=== PATIENT | female | born 1980 | race Caucasian/White ===

== ENCOUNTER 2023-02-22 11:03 | Emergency (ER) | payer OTHER, SELFPAY ==
[2023-02-22 11:39] VITALS: BP 149/98; PULSE 100; RESP 16; TEMP 36.6; O2SAT 100
--- NOTE | 2023-02-22 11:58 | ED.GENADULT ---
HPI - General Adult General Chief complaint: Upper Respiratory Infection Stated complaint: sore throat,congestion Time Seen by Provider: 02/22/23 11:58 Source: patient, RN notes reviewed and old records reviewed Mode of arrival: ambulatory Limitations: no limitations History of Present Illness HPI narrative: 42year old female accompanied by spouse presents to express care with complaints of sore throat, nasal congestion and drainage, right ear pain pressure for one week duration. Patient reports that she has noted hoarseness for the past 3 days. Patient reports no fevers, no nausea vomiting or diarrhea or any body aches. Patient has not been COVID vaccinated or had flu shot, declined offer of screening for these disease processes. Patient reports that she has been taking Tylenol severe cold and flu medications for her symptoms and Flonase nasal spray. MD complaint: right ear pain, sore throat nasal congestion and drainage Onset (ago): week(s) (1) Severity scale (1-10): 6 Treatments prior to arrival: other (Tylenol severe cold and flu, flonase) Related Data Home Medications Medication Instructions Recorded Confirmed norethindrone 1 mg-ethinyl 1 tablet DAILY 02/22/23 02/22/23 estradiol 10 mcg (24)-iron 10 mcg(2) tablet (Lo Loestrin Fe) Allergies Allergy/AdvReac Type Severity Reaction Status Date / Time No Known Allergies Allergy Verified 02/22/23 11:43 Review of Systems Review of Systems: CONSTITUTIONAL: Denies malaise, chills, sweats, or fever. EYES: Denies visual changes, redness, or discharge. ENT: Reports rhinorrhea, congestion, sinus pain,right otalgia and sore throat.hoarseness for 3 days CARDIOVASCULAR: Denies chest pain, palpitations, or edema RESPIRATORY: Reports no cough.? Denies dyspnea. GASTROINTESTINAL: Denies abdominal pain, nausea, vomiting, diarrhea SKIN: Denies rash or itching. MUSCULOSKELETAL: Denies myalgia. NEUROLOGIC: Denies headache. All systems reviewed & are unremarkable except as noted in HPI and below [facility] Social History Social History (Updated 02/24/23 @ 12:31 by Neena Mccauley NP) Smoking status: Never smoker Alcohol intake: current Alcohol use details: social Substance use type: does not use Living arrangements: with family Gender identity (if verbalized by the patient): Female Comments At time of signature, agree with nursing past medical, surgical, social and family history. There is no relevant family history pertinent to the presenting complaint Exam Narrative: GENERAL: Well-appearing, well-nourished, and in no acute distress. HEAD: Normocephalic EYES: PERRLA, conjunctivae clear ENT: Nares clear, turbinates edematous and erythematous, clear discharge. Mucous membranes moist. Right TM red and bulging, Left TM pearly christine with dull light reflex; no tragal tenderness. Oropharynx erythematous without lesions. Tonsils not enlarged and without exudate, no drooling, no hoarseness, no trismus, uvula midline.post nasal drainage NECK: Supple. No lymphadenopathy CHEST: Clear to auscultation, breath sounds equal. No wheezing, rhonchi, rales, or stridor. No respiratory distress, speaks in full sentences.no cough noted, SAO2 100% on room air HEART: Regular rate and rhythm. No murmur heard. SKIN: Warm, dry, no rash. NEURO: Alert and oriented x3. PSYCH: Normal mood and affect Course Course Emergency Course: Patient is aware of diagnosis, understands and agrees to treatment plan.? Anticipatory guidance given.? Patient agrees to follow-up as directed and is aware of reasons to seek care at the emergency department. Portions of this record may have been created with voice recognition software Level of Care: Express Care Visit Vital Signs Vital signs: Vital Signs Temperature 36.6 C 02/22/23 11:39 Pulse Rate 100 02/22/23 11:39 Respiratory Rate 16 02/22/23 11:39 Blood Pressure 149/98 H 02/22/23 11:39 Pulse Oximetry
== END 2023-02-22 12:22 | disposition home or self-care (01) ==
PROVIDERS: Emergency Provider Registered Nurse
DX: J06.9 Acute upper respiratory infection, unspecified (principal); H66.91 Otitis media, unspecified, right ear
CPT/HCPCS: 87081; 87880; 99203; G0463

== ENCOUNTER 2023-03-04 08:12 | Emergency (ER) | payer OTHER, SELFPAY ==
--- NOTE | 2023-03-04 08:29 | ED.SKABFB ---
HPI - Skin/Abscess/Foreign Bdy General Chief complaint: Skin/Abscess/Foreign Body Stated complaint: body rash Time Seen by Provider: 03/04/23 08:28 Source: patient and RN notes reviewed History of Present Illness HPI narrative: Patient is a 42-year-old female who presents to the [facility] with a generalized rash that she noticed a couple days ago. Patient states that the rash started on her leg and has progressed to her trunk, back, bilateral arms, and bilateral legs. Patient presents with a reddened maculopapular rash that is consistent with hives. She denies difficulty breathing or swelling. Patient states that she recently completed a course of Amoxicillin for an ear infection. Patient denies new lotions, soaps, perfumes, detergents. States that the only change in food/medications was the Amoxicillin. Related Data Allergies Allergy/AdvReac Type Severity Reaction Status Date / Time No Known Allergies Allergy Verified 03/04/23 08:14 Review of Systems Review of Systems: CONSTITUTIONAL: Denies fever, chills, or sweats. EYES: Denies visual changes, redness, or discharge. ENT: Denies otalgia and sore throat CARDIOVASCULAR: Denies chest pain, palpitations, or edema. RESPIRATORY: Denies cough or dyspnea. GASTROINTESTINAL: Denies abdominal pain, nausea, vomiting, or diarrhea. GENITOURINARY: Denies dysuria or hematuria. SKIN: Reports generalized rash with mild itching. MUSCULOSKELETAL: Denies back pain, joint pain, or myalgia. NEUROLOGIC: Denies headache, numbness, or weakness. Pertinent positives per HPI. PMFSH Social History Social History Smoking status: Never smoker Alcohol intake: current Alcohol use details: social Substance use type: does not use Living arrangements: with family Gender identity (if verbalized by the patient): Female Comments At the time of my signature, I reviewed and agree with the nursing past medical, surgical, social, and family history. There is no relevant family history pertinent to the patient complaint. Exam Narrative: GENERAL: This is a well-nourished, well-developed patient, in no apparent distress. HEAD: normocephalic, atraumatic. EYES: Sclera clear/white. Vision is grossly intact. EARS: External ears normal, auditory canals clear and without drainage. Hearing grossly intact. NOSE: External nose normal with no obvious nasal discharge, nares without redness, no rhinorrhea. THROAT: Mucous membranes moist, posterior pharynx clear. NECK: Neck supple, non-tender without lymphadenopathy, masses or thyromegaly. CARDIOVASCULAR: Regular rate and rhythm without murmurs, gallops, or rubs. RESPIRATORY: Clear to auscultation. Breath sounds equal bilaterally. No wheezes, rales, or rhonchi. GASTROINTESTINAL: Abdomen soft, non-tender, nondistended. Bowel sounds are active. No hepato-splenomegaly, or palpable masses. No guarding. SKIN: warm, intact with no suspicious lesions, good texture and turgor. Patient presents with generalized reddened maculopapular rash to trunk, back, bilateral legs and arms; consistent with allergic contact dermatitis/hives. NEURO: awake, alert, and oriented to person, place and time. There were no obvious focal neurologic abnormalities. EXTREMITIES: No clubbing, cyanosis, or edema. No joint tenderness, effusion, or edema noted. BACK: Nontender without deformity or crepitance. No flank tenderness. Course Course Level of Care: Express Care Visit Vital Signs Vital signs: Vital Signs Temperature 97.8 F 03/04/23 08:35 Pulse Rate 86 03/04/23 08:35 Respiratory Rate 20 03/04/23 08:35 Blood Pressure 140/90 03/04/23 08:35 Pulse Oximetry 100 03/04/23 08:35 Temperature 97.8 F 03/04/23 08:35 Pulse Rate 86 03/04/23 08:35 Respiratory Rate 20 03/04/23 08:35 Blood Pressure 140/90 03/04/23 08:35 Pulse Oximetry 100 03/04/23 08:35 Reviewed MDM - Skin/Abscess/Foreign Bdy MDM N
[2023-03-04 08:35] VITALS: BP 140/90; PULSE 86; RESP 20; TEMP 36.6; O2SAT 100
== END 2023-03-04 08:50 | disposition home or self-care (01) ==
PROVIDERS: Emergency Provider Nurse Practitioner
DX: L23.89 Allergic contact dermatitis due to other agents (principal)
CPT/HCPCS: 99213; G0463

== ENCOUNTER → 2023-12-16 11:37 | Outpatient (CLI) | payer OTHER, SELFPAY ==
--- NOTE | ~2023-12-16 | US_ITS ---
EXAMINATION: US thyroid DATE: 12/16/2023 11:58 INDICATION: Nontoxic goiter, unspecified. TECHNIQUE: Multiple ultrasound images of the thyroid were obtained. COMPARISON: None. FINDINGS: The right thyroid lobe measures 6.3 x 1.6 x 2.1 cm. The left thyroid lobe measures 6.0 x 1.3 x 1.8 c m. In the left thyroid lobe, there is an 11 mm mixed cystic and solid, isoechoic, wider than tall no dule with smooth margin without echogenic foci (TI-RADS TR2). In the left thyroid lobe, there is an 1 1 mm mixed cystic and solid, isoechoic, wider than tall nodule with smooth margin without echogenic f oci (TR2). In the left thyroid lobe, there is a 6 mm mixed cystic and solid, isoechoic, wider than ta ll nodule with smooth margin without echogenic foci (TR2). IMPRESSION: 1. Small thyroid nodules, likely not clinically significant. No follow-up is needed. Reviewed, dictated and finalized at location E. [employer]ING TEAM MEMBER IMPRESSION: 1. Small thyroid nodules, likely not clinically significant. No follow-up is ne eded.
== END ==
PROVIDERS: PCP Family Medicine; Visit Provider Family Medicine
DX: E04.2 Nontoxic multinodular goiter (principal)
CPT/HCPCS: 76536

== ENCOUNTER 2025-06-06 10:33 | Emergency (ER) | payer BC, SELFPAY ==
--- NOTE | 2025-06-06 10:35 | ED.SKABFB ---
HPI - Skin/Abscess/Foreign Bdy General Chief complaint: Skin/Abscess/Foreign Body Stated complaint: Poison Dulce Time Seen by Provider: 06/06/25 10:35 Source: patient Mode of arrival: ambulatory Limitations: no limitations History of Present Illness HPI narrative: Nava is in a 44-year-old female patient presenting to the clinic today with complaints of possible poison dulce to bilateral lower extremities x1 week. She reports rash seems to be getting worse. Rash initially started on the left leg and now has spread to the right leg. Rash is itchy, blistering, and raised. Was outside mowing and working in the [place] over last weekend prior to her developing the rash. Her also has a similar rash-he was working on the [place] trees. She denies any shortness of breath, drooling, or difficulty swallowing. No other environmental changes, medications, or foods. Related Data Home Medications ?Medication ?Instructions ?Recorded ?Confirmed ?Last Taken ?Type lactobacillus combination no.4 3 3,000 mmu cells PO DAILY 11/13/23 06/06/25 Unknown History billion cell capsule (Probiotic) multivitamin 1 tablet PO DAILY 11/13/23 06/06/25 Unknown History norethindrone 1 mg-ethinyl 1 tablet PO DAILY 11/13/23 06/06/25 Unknown History estradiol 10 mcg (24)-iron 10 mcg(2) tablet (Lo Loestrin Fe) vitamin B complex (B 1 tablet PO DAILY 11/13/23 06/06/25 Unknown History Complex-Vitamin B12 tablet) Allergies Allergy/AdvReac Type Severity Reaction Status Date / Time amoxicillin Allergy Mild Unknown Verified 06/06/25 10:54 Review of Systems Review of Systems: Pertinent positives per HPI. Patient denies any fever, chills, headache, visual changes, dizziness, cough, runny nose, sore throat, shortness of breath, chest pain, palpitations, nausea, vomiting, diarrhea, constipation, abdominal pain, or any urinary issues. PMFSH Past Medical History Medical History Cystic acne Family History Family History Father Malignant neoplasm of prostate Diabetes mellitus Mother Hypertension Grandparent Hypertension Cerebrovascular accident Social History Social History Social History: Years smoked: 10 Smoking status: Never smoker Tobacco type: e-cigarettes/vaping Second hand tobacco smoke exposure: No Additional smoking assessment comments: Pt is still vaping Alcohol intake: current Drinks per week: 4 Substance use: never Substance use type: does not use Do You Feel Safe in your Home?: Yes Lack of Transportation: No Lack of Food: Never True Current Housing: I Have Housing Concerned About Future Housing: No Difficulty Paying Gas/Electric Bills: No Difficulty Paying for Meds: No Currently Unemployed: No Education: Don't Know Difficulty w/ Childcare or Family Care: No Living arrangements: with family Occupation/Education: occupation Additional occupation/education comments: Self Employed Gender identity (if verbalized by the patient): Female Sexual Orientation (if Verbalized by the Patient): Straight or Heterosexual Comments At the time of my signature, I reviewed and agree with the nursing past medical, surgical, social, and family history. There is no relevant family history pertinent to the patient complaint. Exam Narrative: General: Well-developed, well nourished, in no apparent distress Head: Normocephalic, atraumatic. Cardio: Regular rate and rhythm, s1 and s2 normal, no murmur appreciated. Resp: Clear to auscultation bilaterally, no rhonchi, rales, wheezing or rubs. Integumentary: Liborio Negron Torres, warm, and dry, intact without lesion, red, raised, blistery rash to bilateral lower extremities Course Course Emergency Course: Portions of this record may have been created with voice recognition software. Level of Care: Express Care Visit Vital Signs Vital signs: Vital Signs Temperature 36.8 C 06/06/25 10:50 Pulse Rate 87 06/06/25 10:50 Respiratory Rate 16 06/06/25 10:50 Blood Pressure 128/86 06/06/25 10:50 Pulse Oximetry 100 06/06/25 10:50 Oxygen Delivery Room Air 06/06/25 10:50 Temperature 36.8 C 06/06/25 10:50 Pulse Rate 87 06/06/25 10:50 Respiratory Rate 16 06/06/25 10:50 Blood Pressure 128/86 06/06/25 10:50 Pulse Oximetry 100 06/06/25 10:50 Oxygen Delivery Room Air 06/06/25 10:50 Vital signs reviewed MDM - Skin/Abscess/Foreign Bdy MDM Narrative Medical decision making narrative: At the time of visit patient is resting comfortably on the exam table. Patient appears to be nontoxic. Complaints of possible poison dulce to bilateral lower extremities x1 week. She reports rash seems to be getting worse. Rash initially started on the left leg and now has spread to the right leg. Rash is itchy, blistering, and raised. Was outside mowing and working in the [place] last weekend prior to her developing the rash. Her also has a similar rash-he was working [place] the [place]. She denies any shortness of breath, drooling, or difficulty swallowing. No other environmental changes, medications, or foods. Patient has a red blistering itchy rash to bilateral lower extremities Plan: I suspect patient has poison dulce dermatitis. Prescription for triamcinolone cream and prednisone taper dose was sent to the pharmacy for Supportive measures were discussed with the patient and they voiced understanding discharge instructions and agrees to treatment plan. Return precautions reviewed Differential Diagnosis Differential diagnosis: Likely abscess of skin or subcutaneous tissue, viral exanthem, dermatophytosis, urticaria, herpes zoster, allergic reaction to drug, cellulitis, eczema, insect bites, impetigo and contact dermatitis Discharge Plan Discharge Clinical Impression: Allergic dermatitis due to poison dulce Patient Disposition: Home Condition: Stable Instructions: Antibiotic Form, Poison Dulce (ED) Additional Instructions: Apply triamcinolone cream as directed Take prednisone as directed Avoid hot showers May apply calamine lotion to rash Avoid scratching as this can cause a secondary infection May take benadryl 25-50mg every 6 hours as needed for itching. Follow up with your PCP in 3-5 days if symptoms persist or sooner if they worsen Go to the Emergency Room if symptoms worsen- fever, rash spreading with treatment, shortness of breath, tongue swelling, drooling, or chest pain Patient Language: [place] Prescriptions: New prednisone 10 mg tablet 10 mg PO DAILY Qty: 30 0RF Rx Instructions: 60mg po daily on day 1, 40mg po daily on days 2-4, 30mg po daily on days 5-6, 20mg po daily on days 7-8, 10mg po daily on days 9-10 triamcinolone acetonide 0.1 % cream 1 applic topical BID 7 Days Qty: 30 0RF No Action Lo Loestrin Fe 1 mg-10 mcg (24)/10 mcg (2) tablet 1 tablet PO DAILY multivitamin Tablet 1 tablet PO DAILY Probiotic 3 billion cell capsule 3,000 mmu cells PO DAILY Rx Instructions: administer with a meal vitamin B complex [B Complex-Vitamin B12] Tablet 1 tablet PO DAILY Follow-up/Referrals: PHYSICIAN,GRAPHICS EDITOR [Primary Care Provider] - Time of Disposition: 11:01 Quality NIHSS Nursing Documentation ED NIHSS nursing documentation: reviewed/agree
[2025-06-06 10:50] VITALS: BP 128/86; PULSE 87; RESP 16; TEMP 36.8; O2SAT 100
== END 2025-06-06 11:11 | disposition home or self-care (01) ==
PROVIDERS: Emergency Provider Nurse Practitioner Family
DX: L23.7 Allergic contact dermatitis due to plants, except food (principal); F17.290 Nicotine dependence, other tobacco product, uncomplicated
CPT/HCPCS: 99213; G0463